=== PATIENT | male | born 2005 | race African-American/Black ===

== ENCOUNTER 2024-08-02 22:08 | Emergency (ER) | payer MEDICAID ==
[~2024-08-02] VITALS: Ht 175.3 cm; Wt 61.0 kg
[2024-08-02 22:12] VITALS: TEMP 37; O2SAT 99
[2024-08-03] MEDS ORDERED: BACITRACIN ZINC OINT UDPKT TOP ONE
[2024-08-03] MEDS: KETOROLAC 30MG/ML VIAL IM ONE (00:09)
[2024-08-03] MEDS: LIDOCAINE HCL/PF 1% 10 MG/ML 5ML VIAL INFIL ONE (00:12)
[2024-08-03] MEDS ORDERED: BO1 TP (01:57)
[2024-08-03] MEDS ORDERED: CEPH500T MT (01:57)
[2024-08-03] MEDS ORDERED: SULF1TAB48 MT (01:57)
[2024-08-03 02:31] VITALS: BP 125/76; PULSE 79; RESP 13; O2SAT 99
== END 2024-08-03 02:35 | disposition home or self-care (01) ==
LOC: ER 22:08
DX: L60.0 Ingrowing nail (principal)
CPT/HCPCS: 99284; 11730; J1885; J2003; 99283